=== PATIENT | male | born 1975 | race Caucasian/White ===

== ENCOUNTER 2023-11-18 13:35 | Emergency (ER) | payer OTHER, BC ==
[2023-11-18] MEDS: Bacitracin Oint 1 GM U/D Packet TOP ONE (13:54)
== END 2023-11-18 14:05 | disposition home or self-care (01) ==
LOC: LB.ED 13:35
DX: S81.852A Open bite, left lower leg, initial encounter (principal); Z79.899 Other long term (current) drug therapy; W54.0XXA Bitten by dog, initial encounter
CPT/HCPCS: 99283